=== PATIENT | female | born 1945 | race Caucasian/White ===

== ENCOUNTER 2024-02-06 12:51 | Outpatient (AMB) | payer MEDICARE, BC, SELFPAY ==
[2024-02-06 13:17] VITALS: BP 128/74; PULSE 68; O2SAT 97; BMI 28.4
--- NOTE | 2024-02-06 13:17 | A.OFFVIS_ITS ---
Vital Signs 02/06/24 13:17 Height 5 ft 3 in Weight 160 lb 7.944 oz BMI 28.4 BP 128/74 Blood Pressure Location Lt brachial Position Sitting Pulse 68 Pulse Source Pulse Oximeter Pulse Oximetry (%) 97 Oxygen Delivery Method Room Air Intake Visit Reasons: OA/MR RECIEVED Intake Note: Patient presents toay for follow up on OA. Patient states she finished her Prednisone, and once she did, pain started again. Allergies clindamycin Allergy (Mild, Verified 02/06/24 13:31) Swelling erythromycin base Allergy (Mild, Verified 02/06/24 13:31) tachycardia Penicillins Allergy (Mild, Verified 02/06/24 13:31) Hives tramadol [From Ultram] Allergy (Mild, Verified 02/06/24 13:31) makes her nuts nitrofurantoin Allergy (Unknown, Unverified 02/06/24 13:31) Unknown diclofenac Adverse Reaction (Unknown, Verified 02/06/24 13:31) Unknown lovonox Allergy (Mild, Uncoded 02/06/24 13:31) Swelling celecoxib Adverse Reaction (Intermediate, Uncoded 02/06/24 13:31) extreme tiredness HPI HPI OA/MR RECIEVED: Details: She started experiencing left trochanteric bursa pain yesterday. She is having difficulty with walking. Review of Systems Const All systems reviewed & are unremarkable except as noted in HPI and below Physical Exam Vital Signs: Last Vital Signs Pulse 68 02/06/24 13:17 BP 128/74 02/06/24 13:17 Pulse Ox 97 02/06/24 13:17 Oxygen Delivery Method Room Air 02/06/24 13:17 BMI result Body Mass Index 28.4 Const Other: General: Comfortable Skin: No lesions seen MSK: Tender to palpate left trochanteric bursa. She has limited full external rotation of left hip. Office Procedures AMB Joint Injection/Aspiration Joint Injection/Aspiration Details: Left trochanteric bursa Coding 10330 - Large joint Procedure code (CPT) selection complete Office Meds Kenalog 40 mg/mL suspension for injection Performing Provider: Ace Rosado MD Performing Location: [facility] Administered by: Ace Rosado MD on 02/06/24 14:07 Dose Route Admin Location Dispensed Lot Number Expiration Date NDC Retail Sales Specialist 40 mg intrabursal Left trochanteric bursa 1 mL AP [id number] [employer] lidocaine (PF) 10 mg/mL (1 %) injection solution Performing Provider: Ace Rosado MD Performing Location: [facility] Administered by: Ace Rosado MD on 02/06/24 14:07 Dose Route Admin Location Dispensed Lot Number Expiration Date ND Retail Sales Specialist 10 mg Infiltration Left trochanteric bursa 2 mL [id number] [facility] Assessment & Plan Assessment & Plan (1) Trochanteric bursitis, left hip: Comment: Recurrent left trochanteric bursa pain due to bursitis. Code(s): M70.62 - Trochanteric bursitis, left hip Category: Medical Plan: Left trochanteric bursa cortisone injection was given during visit. Continue meloxicam 15 mg daily Labs for drug monitoring and chronic NSAID ordered. She will need prescription for 90 day supply when she runs out. (2) Lumbar spondylosis: Comment: Pain is managed on meloxicam 15 mg daily, cyclobenzaprine 5 mg q.h.s. p.r.n. and cortisone injections administered by pain specialist (L-spine and SI joint) Code(s): M47.816 - Spondylosis without myelopathy or radiculopathy, lumbar region Category: Medical Plan: Continue meloxicam 15 mg daily Continue cyclobenzaprine 5 mg q.h.s. p.r.n. Labs for drug monitoring on chronic NSAID ordered. When patient needs refills, I will send refill for 90 day supply of meloxicam 15 mg q.day (3) Other long-term (current) drug therapy: Comment: Chronic NSAID use. Code(s): Z79.899 - Other terminal makeup operator (current) drug therapy Category: Medical Plan: See above. Orders: Orders Aspartate Amino Transferase 02/07/24 M47.816 - Spondylosis without myelopathy or radiculopathy, lumbar region, Z79.899 - Other terminal makeup operator (current) drug therapy AMB Joint Injection/Aspiration 02/06/24 M70.62 - Trochanteric bursitis, left hip Creatinine 02/07/24 M47.816 - Spondylosis without myelopathy or radiculopathy, lumbar region, Z79.899 - Other terminal makeup operator (current) drug therapy Alanine Aminotransferase 02/07/24 M47.816 - Spondylosis without myelopathy or radiculopathy, lumbar region, Z79.899 - Other long-term (current) drug therapy Coding Level of Care Code Est Pt Level 3 (07501) Complex EM visit Add On G2211 Diagnoses Trochanteric bursitis, left hip M70.62 Lumbar spondylosis M47.816 Other long-term (current) drug therapy Z79.899 CPT Codes Coding - 65281 Large joint: 52263 - Large joint ([id number])
== END 2024-02-06 14:13 | disposition home or self-care (01) ==
PROVIDERS: PCP Internal Medicine; Visit Provider Internal Medicine Rheumatology
DX: M70.62 Trochanteric bursitis, left hip (principal); M47.816 Spondylosis without myelopathy or radiculopathy, lumbar region; Z79.899 Other long term (current) drug therapy
CPT/HCPCS: 20610; 99213

== ENCOUNTER → 2024-02-06 12:51 | Outpatient (BNVA) | payer MEDICARE, BC, SELFPAY | PROVIDERS: PCP Internal Medicine; Visit Provider Internal Medicine Rheumatology | DX: M70.62 Trochanteric bursitis, left hip (principal); M47.816 Spondylosis without myelopathy or radiculopathy, lumbar region; Z79.899 Other long term (current) drug therapy | CPT/HCPCS: 20610; 99212; J2003; J3300 ==

== ENCOUNTER 2024-02-07 11:47 | Outpatient (REF) | payer MEDICARE, SELFPAY ==
[2024-02-07 13:31] LABS: Alanine Aminotransferase 38 U/L (0-31); Aspartate Amino Transferase 30 U/L (5-31); Estimated Glomerular Filt Rate > 60
== END 2024-02-07 11:48 | disposition home or self-care (01) ==
LOC: HO.HMGCLDS 11:47
PROVIDERS: PCP Internal Medicine; Visit Provider Internal Medicine Rheumatology
DX: M47.816 Spondylosis without myelopathy or radiculopathy, lumbar region (principal); Z79.899 Other long term (current) drug therapy
CPT/HCPCS: 36415; 82565; 84450; 84460

== ENCOUNTER 2024-02-24 10:51 | Outpatient (REF) | payer MEDICARE, SELFPAY ==
[2024-02-24 13:43] LABS: Alanine Aminotransferase 33 U/L (0-31); Aspartate Amino Transferase 33 U/L (5-31)
--- OUTSIDE RECORDS SUMMARY | 2024-02-26 14:50 | XMS_ITS | Continuity of Care Document ---
Author Organization [place] - [facility], [facility] Address [address] [place] [address] Care Team Providers Care Water And Fire Technician Name Role Phone TRESA PALMA Primary Care Provider Assessment Encounter Date Assessment Date Assessment LastModified by Organization Details LastModified Time 01/20/2024 01/20/2024 78 year old female with right maxillary sinus pressure for about one month. Nasal endoscopy did not reveal any polyps or active sinus infection. Reassurance was provided. I anticipate that her symptoms were related to a viral upper respiratory infection. I have issued her a referral to vestibular therapy for the positional vertigo. She will follow up on an as needed basis if her symptoms persist or if throat symptoms recur. In the future we could consider CT sinuses if her facial pain persists. Patient was seen and examined with MAXWELL Mullins Not available 01/20/2024 14:14:42 Plan of Treatment Reminders Order Date Submit Date Provider Last Modified By Organization Details Last Modified Time Details Appointments None recorded. Lab None recorded. Referral vestibula r therapy referral - Referral for vestibula r therapy. Patient requests Nini Gomez. Thank you. 2023 024 [facility], [address] [place] [address], [address], 08:57:23 Procedures None recorded. Surgeries None recorded. Imaging None recorded. Medication Orders None recorded. Patient TargetsNo targets recorded. Patient InstructionsNo instructions recorded. Reason for Referral Vestibular Therapy Referral for Dizziness and giddiness Referral for vestibular therapy. Patient requests Nini Gomez. Thank you. 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; Note: Date Diagnosed: 07/07/2015 2:16 PM (H90.42) Not Available [facility] 4 02:18:16 Bilateral earache 697938206 Active 2015 Otalgia, bilateral; Note: Date Diagnosed: 04/29/2015 2:38 PM (H92.03) Not Available [facility] 4 02:19:13 Dizziness and giddiness 042781367 Active 2020 Dizziness and giddiness; Note: Date Diagnosed: 01/12/2021 2:02 PM (R42) Not Available [facility] 4 02:19:03 Acute pansinusi tis 7782971 Active 2020 Acute recurrent pansinusit is; Note: Date Diagnosed: 01/12/2021 2:40 PM (J01.41) Not Available [facility] 4 02:18:20 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 Procedures Surgical History Date Name Laterality Status Provider Name and Address Organization Details Recorded Time 01/20/2024 NasalEndos copy_DP completed ELADIA STALLWORTH PA-C [address] [place] [address],[place] [address], [place], [address], [facility] 01/20/2024 12:59:35 Imaging Results None recorded. Procedure Notes None recorded. Medical Equipment None Reported. Allergies Allergen ID Allergen Name Allergen Category Reaction Reaction Severity Criticality Documentation Date Start Date Code Code System Note Provider Name and Address Organization Details Recorded Time 97882 clindamyc in hydrochlo ride medicatio n other Not available Not available 07/30/2023 99318 RxNorm React ion: unkno wn, unspe cifie d;; Not Available [facility] 4 00:50:06 35320 Medicinal product containin g penicilli n and acting as antibacte rial agent (product) medicatio n other Not available Not available 07/30/2023 28208 05 SNOMED React ion: unkno wn, unspe cifie d;; Not Available [facility] 4 00:50:42 28969 erythromy brittany medicatio n other Not available Not available 07/30/2023 4053 RxNorm React ion: unkno wn, unspe cifie d;; Not Available [facility] 4 00:50:52 Medications Name Sig Start Date Stop Date Status Note LastModified by Organization Details LastModified Time celecoxib 200 mg capsule TAKE 1 CAPSULE BY MOUTH TWICE DAILY WITH FOOD active Not Available Not Available No t Available cyclobenz aprine 10 mg tablet 01/12 completed Medicati on ID: [id number] B rand Name: kt santana Send Method: E-Prescr ibed Sub s Allowed: subs OK Medic ationGen ericName : kt santana Not Available Not Available Not Available atorvasta tin 40 mg tablet TAKE 1 TABLET BY MOUTH EVERY DAY active Not Available Not Available No t Available doxycycli ne hyclate 100 mg capsule TAKE 2 CAPSULES BY MOUTH 1 HOUR PRIOR TO DENTAL PROCEDUR E active Not Available Not Available No t Available fosfomyci n trometham ine 3 gram oral packet 1 EACH BY MOUTH ONCE active Not Available Not Available No t Available benzonata te 200 mg capsule TAKE 1 CAPSULE BY MOUTH THREE TIMES DAILY FOR 7 DAYS FOR COUGH active Not Available Not Available No t Available Ativan 1 mg tablet Take 1 tablet by mouth single dose as needed 01/12 completed Medicati on ID: [id number] D uration Value: 2 Brand Name: Ativan S end Method: E-Prescr ibed Sub s Allowed: subs OK Speci al Instruct ion: take prior to imaging. .may repeat in 30 min if no improvem ent Medi cationGe nericNam e: Ativan Not Available Not Available Not Available meloxicam 15 mg tablet TAKE 1 TABLET BY MOUTH DAILY active Not Available Not Available No t Available alendrona te 70 mg tablet active Medicati on ID: [id number] B rand Name: alendron ate Send Method: E-Prescr ibed Sub s Allowed: subs OK Medic ationGen ericName : alendron ate Not Available Not Available Not Available valsartan 80 mg tablet TAKE 1 TABLET BY MOUTH EVERY DAY active Not Available Not Available No t Available meloxicam 7.5 mg tablet 01/12 completed Medicati on ID: [id number] B rand Name: meloxica m Send Method: E-Prescr ibed Sub s Allowed: subs OK Medic ationGen ericName : meloxica m Not Available Not Available Not Available simvastat in 20 mg tablet 01/12 completed Medicati on ID: [id number] B rand Name: simvasta tin Send Method: E-Prescr ibed Sub s Allowed: subs OK Medic ationGen ericName : simvasta tin Not Available Not Available Not Available mirtazapi ne 30 mg tablet TAKE 1 TABLET BY MOUTH AT BEDTIME active Not Available Not Available No t Available buspirone 10 mg tablet TAKE 1 TABLET BY MOUTH TWICE DAILY active Not Available Not Available No t Available lisinopri l 10 mg tablet 01/12 completed Medicati on ID: [id number] D uration Value: 90 Brand Name: lisinopr il Send Method: E-Prescr ibed Sub s Allowed: subs OK Medic ationGen ericName : lisinopr il Not Available Not Available Not Available prednison e 50 mg tablet TAKE 1 TABLET BY MOUTH DAILY FOR 5 DAYS active Not Available Not Available No t Available gabapenti n 300 mg capsule TAKE 1 CAPSULE BY MOUTH TWICE DAILY active Not Available Not Available No t Available hydrochlo rothiazid e 25 mg tablet TAKE 1 TABLET BY MOUTH EVERY DAY active Not Available Not Available No t Available mupirocin 2 % topical ointment active Not Available Not Available Not Available diclofena c sodium 50 mg tablet,de layed release TAKE 1 TABLET BY MOUTH TWICE DAILY WITH FOOD active Not Available Not Available No t Available zolpidem 5 mg tablet 01/12 completed Medicati on ID: [id number] B rand Name: zolpidem Send Method: E-Prescr ibed Sub s Allowed: subs OK Medic ationGen ericName : zolpidem Not Available Not Available Not Available mirtazapi ne 15 mg tablet TAKE 1 TABLET BY MOUTH AT BEDTIME active Not Available Not Available No t Available fluticaso ne propionat e 50 mcg/actua tion nasal spray,michael pension SHAKE LIQUID AND USE 1 SPRAY IN EACH NOSTRIL DAILY active Not Available Not Available No t Available sodium fluoride 1.1 % dental gel APPLY A THIN FILM TO ALL TEETH BEFORE BEDTIME. NO EATING OR RINSING FOR 30 MINUTES. active Not Available Not Available No t Available doxycycli ne hyclate 100 mg tablet TAKE 1 TABLET BY MOUTH TWICE DAILY FOR 14 DAYS active Not Available Not Available No t Available Ventolin HFA 90 mcg/actua tion aerosol inhaler INHALE 2 PUFFS BY MOUTH FOUR TIMES DAILY NEEDED FOR COUGH OR WHEEZING active Not Available Not Available No t Available cyclobenz aprine 5 mg tablet TAKE 1 TABLET BY MOUTH AT BEDTIME NEEDED active Not Available Not Available No t Available nitrofura ntoin monohydra te/macroc rystals 100 mg capsule TAKE 1 CAPSULE BY MOUTH TWICE DAILY FOR 5 DAYS active Not Available Not Available No t Available fluticaso ne furoate 27.5 mcg/actua tion nasal spray,michael pension active Medicati on ID: [id number] B rand Name: fluticas one furoate Send Method: E-Prescr ibed Sub s Allowed: subs OK Medic ationGen ericName : fluticas one furoate Not Available Not Available Not Available Vitals Date Recorded Body height Body mass index (BMI) Body weight Provider Name and Address Organization Details Last Updated DateTime 01/20/2024 161.29 cm 26.2 kg/m2 73358.86 g Darlene Linares [place] - [facility] 01/20/2024 10:38:07 Social History None recorded. Functional Status None recorded. Mental Status None recorded. Family History Nothing Reported. Medical History No medical history recorded. Gynecological HistoryNo gynecological history recorded. Obstetrics History GPAL:G 0 P 0 0 0 0 Past Encounters Encounter ID Performer Location Encounter Start Date Encounter Closed Date Diagnosis/Indication Diagnosis SNOMED-CT Code Diagnosis ICD10 Code [id number] ANASTACIA BRODY MD [facility] on [address] [place] [address] 01/20/2024 10:28:03 01/20/2024 10:59:14 Dizziness and giddiness 606391710 R42 Atypical facial pain 713 94788 G50.1 Viral uppe r respiratory tract infection 075997793 J06.9 Health Concerns Section Related Observation LastModified by Organization Detai ls LastModified Time None Recorded Concern Status LastModified by Organization Details LastModified Time None Recorded Payers Encounter Date Sequence Insurance Name Policy Number Policy Carmona Covered Member ID Carmona Member ID Guarantor Name 01/20/2024 1 [place] [employer] Raquel Dennis [id number] 3 Raquel Dennis 01/20/2024 2 [place] [id number] Raquel Dennis [id number] Raquel Dennis Notes Date Note Type Note Provider Name and Address Organization Details Recorded Time 01/20/2024 text/html 78 year old michael rai presents to the office reporting sinus pressure as she points to the right maxillary sinus. A couple of weeks ago when she made the appointment she was having severe right side of the throat pain like she was swallowing razor blades. She reports today that the throat has pretty much cleared up. She felt like she had a sinus infection when her symptoms started. Her right ear had felt blocked. She reports a history of sinus infections. Overall her symptoms are improving. Additionally she reports that she has been seen for positional vertigo in the past and she deals with it from time to time. She requests a prescription for vestibular physical therapy. ANASTACIA BRODY MD [address] [place] [address], [phone], [facility] - [facility] 01/21/2024 07:38:30 OBGyn Episode No OBEpisode recorded.
== END 2024-02-24 10:52 | disposition home or self-care (01) ==
LOC: HO.HMGCLDS 10:51
PROVIDERS: PCP Internal Medicine; Visit Provider Internal Medicine Rheumatology
DX: Z79.899 Other long term (current) drug therapy (principal)
CPT/HCPCS: 36415; 84450; 84460

== ENCOUNTER 2024-04-10 13:09 | Outpatient (REF) | payer MEDICARE, SELFPAY ==
--- NOTE | ~2024-04-10 | XR_ITS ---
EXAMINATION: XR HIP, LEFT CLINICAL INFORMATION: M25.552 - Pain in left hip COMPARISON: None available. TECHNIQUE: Two views of the left hip. FINDINGS: There is mild loss of hip joint space without any bony erosive changes or loose bodies. No visible fracture, dislocation or lytic process seen. The soft tissues are normal. Visualized adjacent left hemipelvis is normal. XR/XR hip LT min 2V IMPRESSION: Minimal loss of left hip joint space otherwise unremarkable left hip exam. Electronically signed by: Vicente Jeong MD 04/13/2024 07:30 AM ELLIE
--- OUTSIDE RECORDS SUMMARY | 2024-04-10 14:57 | XMS_ITS | Data Portability ---
Author Organization [place] - [facility], Allergy Address [address] [place] [address] Care Team Providers Care Punchboard Assembler Name Role Phone TRESA PALMA Primary Care [...] requests Nini Gomez. Thank you. 2023 024 [facility], [address] [place] [address], [address], 08:57:23 Procedures None recorded. Surgeries None recorded. [...] Details Recorded Time Sensorine ural hearing loss 70929609 Active 2015 Sensorineu ral hearing loss, unilateral , left ear, with unrestrict ed hearing on the contralate ral side; Note: Date Diagnosed: 07/07/2015 2:16 PM (H90.42) Not Available [facility] 4 02:18:16 Bilateral earache 991792949 Active 2015 Otalgia, bilateral; Note: Date Diagnosed: 04/29/2015 2:38 PM (H92.03) Not Available [facility] 4 02:19:13 Dizziness and giddiness 176801210 Active 2020 Dizziness and giddiness; Note: Date Diagnosed: 01/12/2021 2:02 PM (R42) Not Available [facility] 4 02:19:03 Acute pansinusi tis 2414238 Active 2020 Acute recurrent pansinusit is; Note: Date Diagnosed: 01/12/2021 2:40 PM (J01.41) Not Available [facility] 4 02:18:20 Atypical facial pain 81882859 Active 2023 ELADIA STALLWORTH PA-C [address] [place] [address], [phone] , [facility] 4 14:13:59 Viral upper respirato ry tract infection 467568522 Active 2023 ELADIA STALLWORTH PA-C [address] [place] [address], [address] , [facility] 4 14:14:03 Problem Notes None recorded. Procedures Surgical History Date Name Laterality Status Provider Name and Address Organization Details Recorded Time 01/20/2024 NasalEndos copy_DP completed ELADIA STALLWORTH PA-C [address] [place] [address], [phone], [facility] 01/20/2024 12:59:35 Imaging Results None recorded. Procedure Notes None recorded. Medical Equipment None Reported. Allergies Allergen ID Allergen Name Allergen Category Reaction Reaction Severity Criticality Documentation Date Start Date Code Code System Note Provider Name and Address Organization Details Recorded Time 86547 clindamyc in hydrochlo ride medicatio n other Not available Not available 07/30/2023 28099 RxNorm React ion: unkno wn, unspe cifie d;; Not Available [facility] 4 00:50:06 99191 Product containin g penicilli n and antibioti c (product) medicatio n other Not available Not available 07/30/2023 55378 05 SNOMED React ion: unkno wn, unspe cifie d;; Not Available [facility] 4 00:50:42 11459 erythromy brittany medicatio n other Not available Not available 07/30/2023 4053 RxNorm React ion: unkno wn, unspe cifie d;; Not Available [facility] 4 00:50:52 Medications Name Sig Start Date Stop Date Status Note LastModified by Organization Details LastModified Time celecoxib 200 mg capsule TAKE 1 CAPSULE BY MOUTH TWICE DAILY WITH FOOD active Not Available Not Available No t Available cyclobenz aprine 10 mg tablet 01/12 completed Medicati on ID: [id number] B rand Name: lucinacitlaly santana Send Method: E-Prescr ibed Sub s Allowed: subs OK Medic ationGen ericName : cycloben zaprine Not Available Not Available Not Available atorvasta [...] as needed 01/12 completed Medicati on ID: [id number] D uration Value: 2 Brand Name: Ativan [...] 70 mg tablet active Medicati on ID: [id number] B rand Name: alendron ate Send Method: E-Prescr ibed Sub s Allowed: subs OK Medic ationGen ericName : alendron ate Not Available Not Available Not Available valsartan 80 mg tablet TAKE 1 TABLET BY MOUTH EVERY DAY active Not Available Not Available No t Available meloxicam 7.5 mg tablet 01/12 completed Medicati on ID: [id number] B rand Name: meloxica m Send Method: E-Prescr ibed Sub s Allowed: subs OK Medic ationGen ericName : meloxica m Not Available Not Available Not Available simvastat in 20 mg tablet 01/12 completed Medicati on ID: [id number] B rand Name: simvasta tin Send Method: [...] mg tablet 01/12 completed Medicati on ID: [id number] D uration Value: 90 Brand Name: lisinopr [...] No t Available zolpidem 5 mg tablet 10/28 /2021 completed Medicati on ID: [id number] B rand Name: zolpidem Send Method: E-Prescr [...] nasal spray,michael pension active Medicati on ID: [id number] B purlear Name: fluticas one furoate Send Method: E-Prescr ibed Sub s Allowed: subs OK Medic ationGen ericName : fluticas one furoate Not Available Not Available Not Available Vitals Date Recorded Body height Body mass index (BMI) Body weight Provider Name and Address Organization Details Last Updated DateTime 01/20/2024 161.29 cm 26.2 kg/m2 34804.86 g Darlene Linares [place] - [facility] 01/20/2024 10:38:07 Social History None recorded. Functional Status None recorded. Mental Status None recorded. Family History Nothing Reported. Medical History No medical history recorded. Gynecological HistoryNo gynecological history recorded. Obstetrics History GPAL:G 0 P 0 0 0 0 Past Encounters Encounter ID Performer Location Encounter Start Date Encounter Closed Date Diagnosis/Indication Diagnosis SNOMED-CT Code Diagnosis ICD10 Code Diagnosis Note [id number] ANASTACIA BRODY MD [facility] on [address] [place] [address] 01/20/2024 10:28:03 01/20/2024 10:59:14 Dizziness and giddiness 419108438 R42 Atypical facial pain 713 64957 G50.1 Viral uppe r respiratory tract infection 191992756 J06.9 Health Concerns Section Related Observation LastModified by Organization Detai ls LastModified Time None Recorded Concern Status LastModified by Organization Details LastModified Time None Recorded Advance Directives Directive None Recorded Payers Encounter Date Sequence Insurance Name Policy Number Policy Carmona Covered Member ID Carmona Member ID Guarantor Name 01/20/2024 1 [place] [employer] Raquel Dennis [id number] 3 Raquel Dennis 01/20/2024 2 [place] [id number] Raquel Dennis [id number] Raquel Dennis Notes Date Note Type [...] for vestibular physical therapy. ANASTACIA BRODY MD [address] [place] [address], [phone], [place] - [facility] 01/21/2024 07:38:30 OBGyn Episode No OBEpisode recorded.
== END 2024-04-10 13:10 | disposition home or self-care (01) ==
LOC: HO.HMGCX 13:09
PROVIDERS: PCP Internal Medicine; Visit Provider Internal Medicine Rheumatology
DX: M25.552 Pain in left hip (principal)
CPT/HCPCS: 73502

== ENCOUNTER → 2024-04-10 13:33 | Outpatient (BNV) | payer MEDICARE, SELFPAY | PROVIDERS: PCP Internal Medicine; Visit Provider Radiology Diagnostic Radiology | DX: M25.552 Pain in left hip (principal) | CPT/HCPCS: 73502 ==

== ENCOUNTER 2024-05-12 10:31 | Outpatient (REF) | payer MEDICARE, SELFPAY ==
[2024-05-12 18:29] LABS: Alanine Aminotransferase 29 U/L (0-31); Albumin Level 4.1 g/dL (3.5-5.0); Alkaline Phosphatase 93 U/L (39-117); Aspartate Amino Transferase 33 U/L (5-31); Bilirubin Direct 0.3 mg/dL (0.0-0.5); Estimated Glomerular Filt Rate > 60; Total Protein 7.7 g/dL (6.5-8.0)
== END 2024-05-12 10:32 | disposition home or self-care (01) ==
LOC: HO.HKASLDS 10:31
PROVIDERS: PCP Internal Medicine; Visit Provider Internal Medicine Rheumatology
DX: M16.12 Unilateral primary osteoarthritis, left hip (principal); M70.62 Trochanteric bursitis, left hip; R74.01 Elevation of levels of liver transaminase levels; M47.816 Spondylosis without myelopathy or radiculopathy, lumbar region; Z79.899 Other long term (current) drug therapy
CPT/HCPCS: 36415; 80076; 82565; 99212

== ENCOUNTER 2024-05-12 10:31 | Outpatient (AMB) | payer MEDICARE, SELFPAY ==
--- NOTE | 2024-05-12 10:41 | A.OFFVIS_ITS ---
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 Required: No Allergies clindamycin Allergy (Mild, Verified 05/12/24 10:41) Swelling erythromycin base Allergy (Mild, Verified 05/12/24 10:41) tachycardia Penicillins Allergy (Mild, Verified 05/12/24 10:41) Hives tramadol [From Ultram] Allergy (Mild, Verified 05/12/24 10:41) makes her nuts nitrofurantoin Allergy (Unknown, Verified 05/12/24 10:41) Unknown diclofenac Adverse Reaction (Unknown, Verified 05/12/24 10:41) Unknown lovonox Allergy (Mild, Uncoded 02/06/24 13:31) Swelling celecoxib Adverse Reaction (Intermediate, Uncoded 02/06/24 13:31) extreme tiredness HPI HPI 3 mo follow up: Details: She had a fall down 1 step landing on her left side. She had left hip pain. Pain has improved with time. Continues to have weakness adducting left hip. She continues to take meloxiam 15mg qd. NEOS performed intra-articular hip joint cortisone injection with pain. She has been referred to PT. Review of Systems Const All systems reviewed & are unremarkable except as noted in HPI and below Physical Exam Vital Signs: Last Vital Signs Pulse 78 05/12/24 10:42 Pulse Ox 98 05/12/24 10:42 Oxygen Delivery Method Room Air 05/12/24 10:42 BMI result Body Mass Index 27.4 Const Other: General: Comfortable Skin: No lesions seen MSK: Tender to palpate left groin region and trochanteric bursa. She has limited full external rotation of left hip. SHe has pain with left hip flexion and adduction. Assessment & Plan Assessment & Plan (1) Trochanteric bursitis, left hip: Comment: Pain improved with last cortisone injection. She has mild transaminitis on recent labs 02/2024 without prior history of liver dysfunction or liver disease. NSAIDs can rarely cause transaminitis. She also has been experiencing bruising on her extremities. We discussed the side effect of easily bruising on chronic NSAID use. She has had benefit in controlling hip and back pain with meloxicam. Code(s): M70.62 - Trochanteric bursitis, left hip Category: Medical Plan: She will try to reduce dose of meloxicam to 7.5 mg daily when she can tolerate pain Labs for drug monitoring on chronic NSAID ordered. If she continues to have transaminitis on labs, I will order right upper quadrant ultrasound for further evaluation. Return to clinic in 3 months (2) Osteoarthritis of left hip: Comment: Exacerbated left hip pain after fall. Mild osteoarthritis on recent x-ray 04/10/2024. Personally reviewed x-ray with patient. Improved with intra- articular cortisone injection given by pain management. She likely has hip flexor and abductor ligament/muscle strain contributing to current pain and weakness. Pain management in his ordered PT, which I encouraged her to pursue for lower extremity strengthening. Code(s): M16.12 - Unilateral primary osteoarthritis, left hip Category: Medical Qualifiers: Osteoarthritis type: primary Qualified Code(s): M16.12 - Unilateral primary osteoarthritis, left hip Plan: Patient will schedule physical therapy for lower extremity strengthening. 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 Code(s): Z79.899 - Other terminal operations supervisor (current) drug therapy Category: Medical Plan: See above. (6) Lumbar spondylosis: Comment: Pain is managed on meloxicam 15 mg daily, cyclobenzaprine 5 mg q.h.s. p.r.n. and cortisone injections administered by pain specialist (L-spine and SI joint) Code(s): M47.816 - Spondylosis without myelopathy or radiculopathy, lumbar region Category: Medical Plan: Continue meloxicam 15 mg daily. She will reduce dose to 7.5 mg daily on days that her pain is tolerable Continue cyclobenzaprine 5 mg q.h.s. p.r.n. Labs for drug monitoring on chronic NSAID ordered. Orders: Orders Liver Panel Today R74.01 - Elevation of levels of liver transaminase levels, Z79.899 - Other terminal operations supervisor (current) drug therapy Creatinine Today R74.01 - Elevation of levels of liver transaminase levels, Z79.899 - Other assisted (current) drug therapy Medications: Refilled meloxicam 15 mg PO DAILY 30 tabs 2RF Coding Level of Care Code Est Pt Level 3 (75148) Complex EM visit Add On G2211 Diagnoses Trochanteric bursitis, left hip M70.62 Primary osteoarthritis of left hip M16.12 Osteoarthritis type: primary Transaminitis R74.01 Bruising T14.8XXA Other terminal operations supervisor (current) drug therapy Z79.899 Lumbar spondylosis M47.816
[2024-05-12 10:42] VITALS: PULSE 78; O2SAT 98; BMI 27.4
--- OUTSIDE RECORDS SUMMARY | 2024-05-12 12:30 | XMS_ITS | Data Portability ---
Author Organization [place] - [facility], Allergy Address [address] [place] [id number] Care Team Providers Care Computer Programmer Name Role Phone TRESA PALMA Primary Care [...] requests Nini Gomez. Thank you. 2023 024 [facility], [address] [place] [address], [id number], 08:57:23 Procedures None recorded. Surgeries None recorded. 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; Note: Date Diagnosed: 07/07/2015 2:16 PM (H90.42) Not Available [facility] 4 02:18:16 Bilateral earache 652753564 Active 2015 Otalgia, bilateral; Note: Date Diagnosed: 04/29/2015 2:38 PM (H92.03) Not Available [facility] 4 02:19:13 Dizziness and giddiness 174374651 Active 2020 Dizziness and giddiness; Note: Date Diagnosed: 01/12/2021 2:02 PM (R42) Not Available [facility] 4 02:19:03 Acute pansinusi tis 5471962 Active 2020 Acute recurrent pansinusit is; Note: Date Diagnosed: 01/12/2021 2:40 PM (J01.41) Not Available [facility] 4 02:18:20 Atypical facial pain 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 Procedures Surgical History Date Name Laterality Status Provider Name and Address Organization Details Recorded Time 01/20/2024 NasalEndos copy_DP completed ELADIA STALLWORTH PA-C [address] [place] [address], [phone], [facility] 01/20/2024 12:59:35 Imaging Results None recorded. Procedure Notes None recorded. Medical Equipment None Reported. Allergies Allergen ID Allergen Name Allergen Category Reaction Reaction Severity Criticality Documentation Date Start Date Code Code System Note Provider Name and Address Organization Details Recorded Time 93591 clindamyc in hydrochlo ride medicatio n other Not available Not available 07/30/2023 40765 RxNorm React ion: unkno wn, unspe cifie d;; Not Available [facility] 4 00:50:06 29798 Product containin g penicilli n (product) medicatio n other Not available Not available 07/30/2023 34830 8001 SNOMED React ion: unkno wn, unspe cifie d;; Not Available [facility] 4 00:50:42 29800 erythromy brittany medicatio n other Not available Not available 07/30/2023 4053 RxNorm React ion: unkno wn, unspe cifie d;; Not Available [facility] 4 00:50:52 Medications Name Sig Start Date Stop Date Status Note LastModified by Organization Details LastModified Time celecoxib 200 mg capsule TAKE 1 CAPSULE BY MOUTH TWICE DAILY WITH FOOD active Not Available Not Available No t Available cyclobenz aprine 10 mg tablet 01/12 completed Medicati on ID: [id number] B rand Name: kt santana Send Method: E-Prescr ibed Sub s Allowed: subs OK Medic ationGen ericName : arsenbecitlaly zaprine Not Available Not Available Not Available [...] as needed 01/12 completed Medicati on ID: [id number] D uration Value: 2 Brand Name: Ativan [...] 70 mg tablet active Medicati on ID: [id number] B rand Name: alendron ate Send Method: E-Prescr ibed Sub s Allowed: subs OK Medic ationGen ericName : alendron ate Not Available Not Available Not Available valsartan 80 mg tablet TAKE 1 TABLET BY MOUTH EVERY DAY active Not Available Not Available No t Available meloxicam 7.5 mg tablet 01/12 completed Medicati on ID: [id number] B rand Name: meloxica m Send Method: E-Prescr ibed Sub s Allowed: subs OK Medic ationGen ericName : meloxica m Not Available Not Available Not Available simvastat in 20 mg tablet 01/12 completed Medicati on ID: [id number] B rand Name: simvasta tin Send Method: [...] mg tablet 01/12 completed Medicati on ID: [id number] D uration Value: 90 Brand Name: lisinopr [...] mg tablet 01/12 completed Medicati on ID: [id number] B rand Name: zolpidem Send Method: E-Prescr [...] nasal spray,michael pension active Medicati on ID: [id number] B rand Name: fluticas one furoate Send Method: E-Prescr ibed Sub s Allowed: subs OK Medic ationGen ericName : fluticas one furoate Not Available Not Available Not Available Vitals Date Recorded Body height Body mass index (BMI) Body weight Provider Name and Address Organization Details Last Updated DateTime 01/20/2024 161.29 cm 26.2 kg/m2 15018.86 g Darlene Linares [place] - [facility] 01/20/2024 10:38:07 Social History None recorded. Functional Status None recorded. Mental Status None recorded. Family History Nothing Reported. Medical History No medical history recorded. Gynecological HistoryNo gynecological history recorded. Obstetrics History GPAL:G 0 P 0 0 0 0 Past Encounters Encounter ID Performer Location Encounter Start Date Encounter Closed Date Diagnosis/Indication Diagnosis SNOMED-CT Code Diagnosis ICD10 Code Diagnosis Note [id number] ANASTACIA BRODY MD [facility] on [address] [place] [address] 01/20/2024 10:28:03 01/20/2024 10:59:14 Dizziness and giddiness 646192341 R42 Atypical facial pain 713 59986 G50.1 Viral uppe r respiratory tract infection 387443956 J06.9 Health Concerns Section Related Observation LastModified by Organization Detai ls LastModified Time None Recorded Concern Status LastModified by Organization Details LastModified Time None Recorded Advance Directives Directive None Recorded Payers Encounter Date Sequence Insurance Name Policy Number Policy Carmona Covered Member ID Carmona Member ID Guarantor Name 01/20/2024 1 [place] [employer] Raquel Dennis [id number] Raquel Dennis 01/20/2024 2 [place] [id number] Raquel Dennis [id number] Raquel Dennis Notes Date Note Type [...] for vestibular physical therapy. ANASTACIA BRODY MD [address] [place] [address], [phone], [place] - [facility] 01/21/2024 07:38:30 OBGyn Episode No OBEpisode recorded.
== END 2024-05-12 11:27 | disposition home or self-care (01) ==
PROVIDERS: PCP Internal Medicine; Visit Provider Internal Medicine Rheumatology
DX: M70.62 Trochanteric bursitis, left hip (principal); M16.12 Unilateral primary osteoarthritis, left hip; R74.01 Elevation of levels of liver transaminase levels; T14.8XXA Other injury of unspecified body region, initial encounter; Z79.899 Other long term (current) drug therapy; M47.816 Spondylosis without myelopathy or radiculopathy, lumbar region
CPT/HCPCS: 99213; G2211

== ENCOUNTER 2024-08-06 10:03 | Outpatient (AMB) | payer MEDICARE, SELFPAY ==
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
[2024-08-06 10:01] VITALS: BP 110/60; PULSE 78; O2SAT 97; BMI 27.4
--- OUTSIDE RECORDS SUMMARY | 2024-08-06 10:24 | XMS_ITS ---
Author Organization [facility] Address [address] [place] [address] Care Team Providers Care Wicker Worker Name Role Phone Viral Anderson MD Primary Care Provider Janki Vargas Unavailable [phone] Allergies Allergen (clinical drug ingredient) Drug/Non Drug Allergy documented on EMR Reaction Allergy Type Onset Date Status celecoxib Celecoxib Unknown Drug Allergy Active nitrofurantoin Nitrofurantoin Unknown Drug Allergy Active Diclofenac Unknown Drug Allergy Active clindamycin Clindamycin Unknown Drug Allergy Act lakisha erythromycin Erythromycin Unknown Drug Allergy A ctive Penicillin Unknown Drug Allergy Active REASON FOR VISIT Foot pain Medications Medication SIG (Take, Route, Fr equency, Duration) Notes Start Date End Date Status Gabapentin Active busPIRone HCl Active Atorvastatin Calcium Active hydroCHLOROthiazide Active valACYclovir HCl Act lakisha Acetaminophen Active Aspirin Active Meloxicam Active Fluticasone Propionate Active Valsartan Active Omeprazole Active Cyclobenzaprine HCl Active Social History Tobacco Use: Social History Observation Description Date Details (start date - stop date) Never Smoker NA - NA Tobacco use other than smoking: Question Answer Notes Are you an other tobacco user? No Tobacco Control (Standard) Question Answer Notes Tobacco use: Nonsmoker Additional Findings: Tobacco non-user Current no nsmoker AUDIT-C (Standard) Question Answer Notes Did you have a drink contain ing alcohol in the past year? Yes How often did you have a dri nk containing alcohol in the past year? Never (0 point) How many drinks did you have on a typical day when you were drinking in the past year? 1 or 2 drinks (0 point) How often did you have six o r more drinks on one occasion in the past year? Never (0 point) Points 0 Interpretation Negative Vital Signs Height 5ft 3in in 07/13/2024 Weight 150 lbs 07/13/2024 BMI 26.57 kg/m2 07/13/2024 Blood pressure systolic 130 mm Hg 07/14/19 25 Blood pressure diastolic 70 mm Hg 025 Encounters Encounter Location Date Provider [facility] [address] 07/13/2024 Janki Curry Flat foot [pes planus] (acquired), right foot M21.41 ; Flat foot [pes planus] (acquired), left foot M21.42 and Pain in left foot M79.672 Assessments Encounter Date Diagnosis (ICD Code) Assessment Notes Treatment Notes Treatment Clinical Notes Section Notes 07/13/2024 Flat foot [pes planus] (acquired), right foot (ICD-10 - M21.41) 07/13/2024 Flat foot [pes planus] (acquired), left foot (ICD-10 - M21.42) 07/13/2024 Pain in left foot (ICD-10 - M79.672) Plan Of Treatment Next Appt Details Follow Up: prn, Reason: Progress Notes * Raquel VÁSQUEZ ADOB:[birth year] (78 yo F)Acc No.[id number]:07/13/2024 Progress Notes Patient:?THALIA Raquel Castaneda Provider:?Janki Curry DPM :1945???Age:78 Y???Sex:Female D ate:07/13/2024 Address:[address] [place] [id number] Pcp:Viral Anderson MD Subjective: * Chief Complaints: * ???Foot pain * HPI: ???Foot Pain:?Nature:?tenderness, foot sliding in shoe.?Location:?LEFT.?Duration:?several months.?Treatments:?custom orthotics, padding.? * ROS:?General/Constitutional:?Nausea?denies.?Vomiting?denies.?Hunger Thirst?denies.?Loss appetite?denies.?Chills?denies.?Fatigue?denies.?Fever?denies.?Night Sweats?denies.?Unexplained weight loss?denies.?Unexplained weight gain?denies.?HEENTM:?Dentures?denies.?Dizziness?denies.?Glasses/contacts?denies.?Retinopathy?de nies.?Blurred/double vision?denies.?TMJ?denies.?Discharge/drainage?denies.?Implants?denies.?Sore throat?denies.?Dental implants?denies.?Hard of hearing ?denies.?Difficulty chewing/swallowing/speaking?denies.?Nose bleeds?denies.?Sore mouth?denies.?Respiratory:?On Oxygen?denies.?Pneumonia/pleurisy?denies.?Bronchitis?denies.?Emphysema?denies.?C oughing?denies.?Cough blood?denies.?Shortness of breath?denies.?Wheezing?denies.?Cardiovascular:?Pacemaker?denies.?MVP?denies.?WPW?denies.?CHF?denies.?Heart attack?denies.?Septal defect?denies.?Rapid beat?denies.?Chest pain ?denies.?Atrial Fib.?denies.?Murmur/Palpitations?denies.?Gastrointestinal:?Hemorrhoids?denies.?Stomach/Abdominal pain?denies.?Dark blood stool?denies.?Irritable bowel ?denies.?Constipation?denies.?Diarrhea?denies.?Hematology:?Swelling?denies.?Clots?denies.?Varicose Veins?denies.?Bruising?denies.?Bleeding problem?denies.?Genitourinary:?Blood urine?denies.?Frequent/Painfu/urination/bladder control?denies.?Kidney stones?denies.?Infection (UTI)?denies.?Nephropathy?denies.?sex trans dis (STD)?denies.?Prostate?denies.?Musculoskeletal:?Hammertoes?denies.?Bunions?denies.?Back Pain?denies.?Muscle Cramps/ Resting?denies.?Muscle cramps / walking?denies.?Generalized aches and pains?denies.?Weakness?denies.?Integ.:?Davalos?denies.?Scars?denies.?Corns/calluses?denies.?Ingrown nails?denies.?Painful nails?denies.?Open Sores?denies.?Rashes?denies.?Neurologic:?Difficulty sleeping?denies.?Brain disorder?denies.?Numbness?denies.?Balance trouble?denies.?Confusion?denies.?Fainting/blackouts?denies.?Tingling?denies.?Tr emors?denies.? * Medical History:? * Surgical History:?spinal lennox nosis surgery Gingivectomy 1985tonsillectomy 1949discectomy 1990L & R Tailers Bunion 1998R rotator cuff 2002R Carpal tunnel 2007L Carpal tunnel & CT release 2009left knee replacement 2013right knee replacement 2010cataract surgery, right 2012lasik 2004cataract surgery, left 2018L rotator cuff 2016R hand & CT release 2016 * Hospitalization/Major Diagno stic Procedure:?Denies Past Hospitalization * Family History:?Mother: dece ased, Foot problems, diagnosed with Other malignant neoplasm of unspecified site, Unspecified essential hypertension, Family history of arthritis.?Father: , diagnosed with Unspecified heart disease.? * Social History:?Tobacco Use:?Tobacco use other than smoking?Are you an other tobacco user??No ?Tobacco Control (Standard)?Tobacco use:?Nonsmoker ?Additional Findings: Tobacco non-user?Current nonsmoker ???Drugs/Alcohol:?Drugs?Have you used drugs other than those for medical reasons in the past 12 months??No ???Miscellaneous:?Caffeine: no, decaf. ?Children: yes, 2. ?Exercise: yes, gardening. ?Marital status: . ?Occupation: Retired. ???Drug/Alcohol:?AUDIT-C (Standard)?Did you have a drink containing alcohol in the past year??Yes ?How often did you have a drink containing alcohol in the past year??Never (0 point) ?How many drinks did you have on a typical day when you were drinking in the past year??1 or 2 drinks (0 point) ?How often did you have six or more drinks on one occasion in the past year??Never (0 point) ?Points?0 ?Interpretation?Negative * Medications:?TakingOmeprazol e Cyclobenzaprine HCl Acetaminophen Aspirin Fluticasone Propionate Valsartan Meloxicam valACYclovir HCl hydroCHLOROthiazide busPIRone HCl Atorvastatin Calcium Gabapentin Medication List reviewed and reconciled with the patientTaking Omeprazole Taking Cyclobenzaprine HCl Taking Acetaminophen Taking Aspirin Taking Fluticasone Propionate Taking Valsartan Taking Meloxicam Taking valACYclovir HCl Taking hydroCHLOROthiazide Taking busPIRone HCl Taking Atorvastatin Calcium Taking Gabapentin Medication List reviewed and reconciled with the patient * Allergies:?PenicillinErythromycinClindamycinCelecoxibDiclofenacNitrofurantoinyes [Allergies Verified] Objective: * Vitals:?Ht: 5ft 3in, Wt: 150 , BMI: 26.57, Shoe size: 8.5, BP: 130/70 mm Hg, Ht- cm: 160.02 cm, Wt-k.04 kg. * Examination: ???General Examination: ?GENERAL APPEARANCE:?Reveals a pleasant, alert, well-nourished, well- developed, well hydrated individual, who demonstrates proper attention to hygiene/body habitus, and is in no acute distress, Pt serves as own?historian for office visit today.?ORIENTED:?person, place, and time.?Neurological: ?SENSORY:?Neurological exam reveals intact sensorium, pain sensation normal, vibration sensation intact, pinprick sensation is normal in the lower extremities, Pt denies, anesthesia, burning, paresthesia, tingling, B/L.?DEEP TENDON REFLEXES:?Achilles, 2/4, B/L.?Vascular: ?DP PULSES (B):?3/4, B/L.?PT PULSES (B):?3/4, B/L.?CAPILLARY FILL TIME:?immediate, all digits, B/L.?TROPHIC CONDITION-TEXTURE/ELASTICITY/TURGOR/HAIR GROWTH (B):?normal, B/L.?TEMPERTURE GRADIENT (C):?warm to cool, proximal to distal, B/L.?PIGMENTATION:?normal, B/L.?EDEMA (C):?absent, B/L.?Dermatologic: ?SKIN FINDINGS:?Skin exam reveals normal texture, elasticity, and turgor. There are no masses. The interspaces are clear.?Orthopedic: ?MUSCLE STRENGTH:?5/5 all groups in a symmetrical fashion , B/L.?GAIT ABNORMALITY:?antalgic, abducted angle and base of gate.?FOOT MORPHOLOGY:?B/L, Pes Planus structure, Semi-flexible.?FOOTWEAR EVALUATION:?OT were inspected and noted to be worn and left orthotic ?not giving proper support at the present time.? Assessment: * Assessment: 1.?Flat foot [pes planus] (a cquired), left foot - M21.42 (Primary)???2.?Flat foot [pes planus] (acquired), right foot - M21.41???3.?Pain in left foot - M79.672??? Plan: * Treatment: * Procedure Codes:? * Preventive Medicine:? ??Counseling:?Discussion:?-03: Office or other outpatient visit for the evaluation and management of a new patient, which required a medically appropriate history and/or examination and LOW level of DECISION MAKING for: 1 STABLE ACUTE UNCOMPLICATED PROBLEM, 2 OR MORE MINOR PROBLEMS, OR 1 STABLE CHRONIC PROBLEM, THAT POSE(S) A LOW RISK FOR MORBIDITY/MORTALITY. The visit on the day of the encounter encompassed interpreting the data and educating the patient as to the nature of their condition, treatment options available according to their individual PMH, meds, allergies, and overall health/living conditions, as well as any potential risks or complications that may occur from a failure to adhere to, and participate in, the recommended course of therapy. The discussion included a complete verbal, and/or written explanation of the examination results, any x-rays taken, the proposed diagnosis, and outline of the treatment plan. A schedule for future care needs was also explained. The patient verbalized an understanding of the instructions at this time and agreed to be an active participant in their treatment. If the patient should think of any questions or concerns after the visit, I have encouraged the patient to call the office.?BioMech.:?I discussed the Pts foot biomechanics with them and how it relates to their problem.?Padding:?Added lateral wedge to left orthotic.? ??Screening/Special Tests:?Fall Risk?Screening:?No falls in the past year ?FALLS: Screening for Future Fall Risk?Have you had two or more falls in the past year??No * Follow Up:?prn * Images: * Sign off status: Completed true * Provider:?Janki Curry, DPM Date:? Generated for Myra seay/Margie/Sondraitting on:?08/06/2024 10:24 AM EDT History and Physical Notes * HPI (History of Present Illness) Category Sub-Category Detail Notes Category Not es Foot Pain Nature: tenderness, foot sliding in shoe Location: LEFT Duration: several months Treatments: custom orthotics, pa dding Examination Category Sub-Category Detail Notes Category Not es Neurological SENSORY: Neurological exa m reveals intact sensorium, pain sensation normal, vibration sensation intact, pinprick sensation is normal in the lower extremities, Pt denies, anesthesia, burning, paresthesia, tingling, B/L DEEP TENDON REFLEXES: Achilles, 2/4, B/L Dermatologic SKIN FINDINGS: Skin exam reveal s normal texture, elasticity, and turgor. There are no masses. The interspaces are clear Orthopedic GAIT ABNORMALITY: antalgic, abducted angl e and base of gate FOOT MORPHOLOGY: B/L, Pes Planus stru cture, Semi-flexible FOOTWEAR EVALUATION: OT were inspected a nd noted to be worn and left orthotic not giving proper support at the present time MUSCLE STRENGTH: 5/5 all groups in a symmetrical fashion , B/L General Examination GENERAL APPEARANCE: Reveals a pleasant, alert, well- nourished, well-developed, well hydrated individual, who demonstrates proper attention to hygiene/body habitus, and is in no acute distress, Pt serves as own historian for office visit today ORIENTED: person, place, and t jonah Vascular DP PULSES (B): 3/4, B/L PT PULSES (B): 3/4, B/L CAPILLARY FILL TIME: immediate, all digi ts, B/L TEMPERTURE GRADIENT (C): warm to cool, p roximal to distal, B/L TROPHIC CONDITION-TEXTURE/ELASTICITY/TURGOR/HAIR GROWTH (B): normal, B/L EDEMA (C): absent, B/L PIGMENTATION: normal, B/L
--- OUTSIDE RECORDS SUMMARY | 2024-08-06 10:24 | XMS_ITS | Data Portability ---
Author Organization [place] - [facility], Allergy Address [address] [place] [address] Care Team Providers Care Acoustic Sensor Operator Name Role Phone TRESA PALMA Primary Care [...] persists. Patient was seen and examined with Toyin More PA-C. Not available 01/20/2024 14:14:42 06/17/2024 06/17/2024 78 year old female with hoarseness that progresses over the course of the day. Fiberoptic laryngoscopy was unremarkable. I have recommended a six week trial of Omeprazole to address silent reflux. Discussed good voice hygiene including adequate hydration, avoidance of straining and clearing throat. I have also issued her a prescription for speech therapy with Vanessa Guillen. Follow up in 4 months. Not available 06/17/2024 15:08:37 Plan of Treatment Reminders Order Date Submit Date Provider Last Modified By Organization Details Last Modified Time Details Appointments Establi shed 15 2024 11:15A M MARIA ESTHER URIBE PA-C Not available Not available Not available Lab None recorde d. Referral speech therapy referra l 2024 025 [email or web address] Vanessa Guillen, [address] [facility], [place], [address], 06/17/2024 12:21:39 vestibu lar therapy referra l - Referra l for vestibu lar therapy . Patient request glen Gomez . Thank you. 2023 024 [facility], [address] [facility], [place], [address], 02/06/2024 08:57:23 Procedures None recorde d. Surgeries None recorde d. Imaging None recorde d. Medication Orders omepraz ole 20 mg capsule ,delaye d release 2024 025 [id number], [address] [place], [place], [id number], 06/17/2024 11:30:30 Patient TargetsNo targets recorded. Patient InstructionsNo instructions recorded. Reason for Referral Vestibular Therapy Referral for Dizziness and giddiness Referral for vestibular therapy. Patient requests Ninimaribel Gomez. Thank you. 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; Note: Date Diagnosed: 07/07/2015 2:16 PM (H90.42) Not Available [facility] 4 02:18:16 Bilateral earache 501068727 Active 2015 Otalgia, bilateral; Note: Date Diagnosed: 04/29/2015 2:38 PM (H92.03) Not Available [facility] 4 02:19:13 Dizziness and giddiness 543807702 Active 2020 Dizziness and giddiness; Note: Date Diagnosed: 01/12/2021 2:02 PM (R42) Not Available [facility] 4 02:19:03 Acute pansinusi tis 4994755 Active 2020 Acute recurrent pansinusit is; Note: Date Diagnosed: 01/12/2021 2:40 PM (J01.41) Not Available [facility] 4 02:18:20 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 2023 NATALIA STALLWORTH PA-C [facility] [place], [address] , [facility] - [facility] 14:13:59 Viral upper respirato ry tract infection 913819951 Active 2023 NATALIA STALLWORTH PA-C [address] [place] [address],[place] [address], [facility] [place], [address] , [facility] 4 14:14:03 Hoarse 60923702 Active 2024 ANTALIA STALLWORTH PA-C [address] [place] [address],[address] [place], [address] , [facility] 5 11:27:33 Problem Notes None recorded. Procedures Surgical History Date Name Laterality Status Provider Name and Address Organization Details Recorded Time 06/17/2024 FOL_DP completed NATALIA STALLWORTH PA-C [address] [place] [address], [phone], [facility] 06/17/2024 15:06:11 01/20/2024 NasalEndos copy_DP completed NATALIA STALLWORTH PA-C [address] [place] [address], [address], [facility] 01/20/2024 12:59:35 Imaging Results None recorded. Procedure Notes None recorded. Medical Equipment None Reported. Allergies Allergen ID Allergen Name Allergen Category Reaction Reaction Severity Criticality Documentation Date Start Date Code Code System Note Provider Name and Address Organization Details Recorded Time 34304 clindamyc in hydrochlo ride medicatio n other Not available Not available 07/30/2023 27274 RxNorm React ion: unkno wn, unspe cifie d;; Not Available [facility] 4 00:50:06 60054 Product containin g penicilli n (product) medicatio n other Not available Not available 07/30/2023 62312 8001 SNOMED React ion: unkno wn, unspe cifie d;; Not Available [facility] 4 00:50:42 00271 erythromy brittany medicatio n other Not available Not available 07/30/2023 4053 RxNorm React ion: unkno wn, unspe cifie d;; Not Available [facility] 4 00:50:52 Medications Name Sig Start Date Stop Date Status Note LastModified by Organization Details LastModified Time celecoxib 200 mg capsule TAKE 1 CAPSULE BY MOUTH TWICE DAILY WITH FOOD 06/17 completed Not Available Not Available Not Available cyclobenz aprine 10 mg tablet 01/12 completed Medicati on ID: [id number] B rand Name: kt santana Send Method: E-Prescr ibed Sub s Allowed: subs OK Medic ationGen ericName : kt diazrine Not Available Not Available Not Available atorvasta tin 40 mg tablet TAKE 1 TABLET BY MOUTH DAILY active Not Available Not Available No t Available prednison e 10 mg tablet SEE ATTACHED DIRECTIO NS FOR TAPER 06/17 completed Not Available Not Available Not Available doxycycli ne hyclate 100 mg capsule TAKE 2 CAPSULES BY MOUTH 1 HOUR PRIOR TO DENTAL PROCEDUR E 06/17 completed Not Available Not Available Not Available fosfomyci n trometham ine 3 gram oral packet 1 EACH BY MOUTH ONCE 06/17 completed Not Available Not Available Not Available benzonata te 200 mg capsule TAKE 1 CAPSULE BY MOUTH THREE TIMES DAILY FOR 7 DAYS FOR COUGH 06/17 completed Not Available Not Available Not Available Ativan 1 mg tablet Take 1 tablet by mouth single dose as needed 01/12 completed Medicati on ID: [id number] D uration Value: 2 Brand Name: Ativan [...] t Available alendrona te 70 mg tablet TAKE 1 TABLET BY MOUTH 1 TIME A WEEK active Not Available Not Available No t Available valsartan 80 mg tablet TAKE 1 TABLET BY MOUTH DAILY active Not Available Not Available No t Available meloxicam 7.5 mg tablet 01/12 completed Medicati on ID: [id number] B rand Name: meloxica m Send Method: E-Prescr ibed Sub s Allowed: subs OK Medic ationGen ericName : meloxica m Not Available Not Available Not Available benzonata te 100 mg capsule TAKE 1 CAPSULE BY MOUTH THREE TIMES DAILY FOR 7 DAYS NEEDED FOR COUGH 06/17 completed Not Available Not Available Not Available simvastat in 20 mg tablet 01/12 completed Medicati on ID: [id number] B rand Name: simvasta tin Send Method: [...] mg tablet 01/12 completed Medicati on ID: [id number] D uration Value: 90 Brand Name: lisinopr il Send Method: E-Prescr ibed Sub s Allowed: subs OK [facility] lisinopr il Not Available Not Available Not Available prednison e 50 mg tablet TAKE 1 TABLET BY MOUTH DAILY FOR 5 DAYS 06/17 completed Not Available Not Available Not Available gabapenti n 300 mg capsule TAKE 1 CAPSULE BY MOUTH TWICE DAILY active Not Available Not Available No t Available omeprazol e 20 mg capsule,d elayed release TAKE 1 CAPSULE BY MOUTH EVERY DAY active Not Available Not Available No t Available hydrochlo rothiazid e 25 mg tablet TAKE 1 TABLET BY MOUTH DAILY active Not Available Not Available No t Available mupirocin 2 % topical ointment 06/17 completed Not Available Not Available Not Available diclofena c sodium 50 mg tablet,de layed release TAKE 1 TABLET BY MOUTH TWICE DAILY WITH FOOD 06/17 completed Not Available Not Available Not Available zolpidem 5 mg tablet 01/12 completed Medicati on ID: [id number] B rand Name: zolpidem Send Method: E-Prescr ibed Sub s Allowed: subs OK Medic ationGen ericName : zolpidem Not Available Not Available Not Available mirtazapi ne 15 mg tablet TAKE 1 TABLET BY MOUTH AT BEDTIME 06/17 completed Not Available Not Available Not Available fluticaso ne propionat e 50 mcg/actua tion nasal spray,michael pension SHAKE LIQUID AND USE 1 SPRAY IN EACH NOSTRIL DAILY active Not Available Not Available No t Available sodium fluoride 1.1 % dental gel APPLY THIN FILM TO ALL TEETH BEFORE BEDTIME NO EATING OR RINSING FOR 30 MINUTES active Not Available Not Available No t Available cholecalc iferol (vitamin D3) 125 mcg (5,000 unit) capsule TAKE 1 CAPSULE BY MOUTH ONCE A DAY active Not Available Not Available No t Available doxycycli ne hyclate 100 mg tablet TAKE 1 TABLET BY MOUTH TWICE DAILY FOR 14 DAYS 06/17 completed Not Available Not Available Not Available bacitraci n-polymyx in B 500 unit-10,0 00 unit/gram eye ointment APPLY 1 THIN LAYER TO THE EYELIDS THREE TIMES DAILY FOR 5 DAYS 06/17 completed Not Available Not Available Not Available Ventolin HFA 90 mcg/actua tion aerosol [...] BY MOUTH TWICE DAILY FOR 5 DAYS 06/17 completed Not Available Not Available Not Available fluticaso ne furoate 27.5 mcg/actua tion nasal spray,michael pension 06/17 completed Medicati on ID: [id number] B rand Name: fluticas one furoate Send Method: E-Prescr ibed Sub s Allowed: subs OK Medic ationGen ericName : fluticas one furoate Not Available Not Available Not Available Vitals Date Recorded Body height Body mass index (BMI) Body weight Provider Name and Address Organization Details Last Updated DateTime 06/17/2024 160.02 cm 26.6 kg/m2 29098.86 g Janene Potvin [place] - [facility] 06/17/2024 10:52:10 Date Recorded Body height Body mass index (BMI) Body weight Provider Name and Address Organization Details Last Updated DateTime 01/20/2024 161.29 cm 26.2 kg/m2 10471.86 g Darlene Linares [place] - [facility] 01/20/2024 10:38:07 Social History None recorded. Functional Status None recorded. Mental Status None recorded. Family History Nothing Reported. Medical History No medical history recorded. Gynecological HistoryNo gynecological history recorded. Obstetrics History GPAL:G 0 P 0 0 0 0 Past Encounters Encounter ID Performer Location Encounter Start Date Encounter Closed Date Diagnosis/Indication Diagnosis SNOMED-CT Code Diagnosis ICD10 Code Diagnosis Note [id number] NATALIA STALLWORTH PA-C [facility] [address] [address] 01/20/2024 10:28:03 01/20/2024 10:59:14 Dizziness and giddiness 042193475 R42 Atypical facial pain 713 16910 G50.1 Viral uppe r respiratory tract infection 600456142 J06.9 [id number] NATALIA STALLWORTH PA-C [facility] [address] [place] [address] 06/17/2024 10:41:56 06/17/2024 11:44:31 Hoarse 61341231 R49.0 Health Concerns Section Related Observation LastModified by Organization Detai ls LastModified Time None Recorded Concern Status LastModified by Organization Details LastModified Time None Recorded Advance Directives Directive None Recorded Payers Insurance Date Sequence Insurance Name Policy Number Policy Carmona Covered Member ID Carmona Member ID Guarantor Name 06/17/2024 1 [place]ICARE B[place]: [employer] Raquel Dennis [id number] Raquel Dennis 06/17/2024 2 [facility] (PPO) [id number] Raquel Dennis [id number] Raquel Dennis Notes Date Note Type [...] for vestibular physical therapy. ANASTACIA BRODY MD [address] [place] [address],[address], [address], [facility] 01/21/2024 07:38:30 06/17/2024 text/html 78 year old michale rai presents to the office reporting that for the past couple of months she has dealt with hoarseness. In the morning her voice sounds normal and by mid to later in the day she starts to lose her voice. It becomes more rough in nature. Her boyfriend cannot hear her and she frequently is straining her voice. No recent upper respiratory infection. She is not on any medication for reflux and denies symptoms. She quit smoking over 40 years ago. She does find herself clearing her throat frequently and admits that she does not drink much water. RC GOOD MD [address] [place] [address],[address], [address], [facility] 06/17/2024 17:19:37 OBGyn Episode No OBEpisode recorded.
--- OUTSIDE RECORDS SUMMARY | 2024-08-06 10:24 | XMS_ITS ---
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 Generated for Printi ng/Faxing/eTransmitting on:?08/06/2024 10:24 AM EDT
--- OUTSIDE RECORDS SUMMARY | 2024-08-06 10:24 | XMS_ITS | Patient Health Record ---
Author Organization [facility] Address [address] [place] [address] Care Team Providers Care Temperer Name Role Phone Viral Anderson MD Primary Care Provider Janki Vargas Unavailable [phone] Allergies Allergen (clinical drug ingredient) Drug/Non Drug Allergy documented on EMR Reaction Allergy Type Onset Date Status celecoxib Celecoxib Unknown Drug Allergy Active nitrofurantoin Nitrofurantoin Unknown Drug Allergy Active Diclofenac Unknown Drug Allergy Active clindamycin Clindamycin Unknown Drug Allergy Act lakisha erythromycin Erythromycin Unknown Drug Allergy A ctive Penicillin Unknown Drug Allergy Active Reason For Referral No Information Medications Medication SIG (Take, Route, Fr equency, Duration) Notes Start Date End Date Status Acetaminophen Active Aspirin Active Omeprazole Active Gabapentin Active Cyclobenzaprine HCl Active busPIRone HCl Active Atorvastatin Calcium Active hydroCHLOROthiazide Active Meloxicam Active valACYclovir HCl Act lakisha Fluticasone Propionate Active Valsartan Active Social History Tobacco Use: Social History [...] point) Points 0 Interpretation Negative Vital Signs Blood pressure diastolic 70 mm Hg 07/13/2024 Height 5ft 3in in 07/13/2024 Blood pressure systolic 130 mm Hg 07/13/2024 Weight 150 lbs 07/13/2024 BMI 26.57 kg/m2 07/13/2024 Encounters Encounter Location Date Provider Diagnosis [facility] [address] [place] [address] 07/13/2024 Janki Curry Flat foot [pes planus] (acquired), right foot M21.41 ; Flat foot [pes planus] (acquired), left foot M21.42 and Pain in left foot M79.672 [facility] [address] [place] [address] 06/10/2024 Janki Curry Assessments Encounter Date Diagnosis (ICD Code) Assessment Notes Treatment Notes Treatment Clinical Notes Section Notes 07/13/2024 Flat foot [pes planus] (acquired), left foot (ICD-10 - M21.42) 07/13/2024 Flat foot [pes planus] (acquired), right foot (ICD-10 - M21.41) 07/13/2024 Pain in left foot (ICD-10 - M79.672) Plan Of Treatment No Information Insurance Providers Payer Name Payer Address Payer Phone Subscriber Number Group Number Insured Name Patient Relationship to Insured Coverage Start Date Coverage End Date Medicare National [employer]t [employer] [address] [place] [address] [id number] Raquel Dennis Self - patient is the insured 0 [employer] [address] [place] [address] [id number] Raquel Dennis Self - patient is the insured Medical (General) History Medical History History ICD Code Anxiety osteoarthritis Back,Hip,and Knee pain Cataracts Headaches/Migraines High Blood Pressure Lyme disease Osteoporosis Psychiatric disorder Sciatica sinusitis Mumps Chicken pox Joint implants/screws Mild heart attack Factor Leiden DVT Blood Clots CAD (Cholesterol) Fibromyalgia Right eye double vision Severe hearing loss at left ear Herniated lumbar disc Surgical History Surgery Date(Month/Year) spinal stenosis surgery Gingivectomy 1984 tonsillectomy 1949 discectomy 1989 L & R Tailers Bunion 1997 R rotator cuff 2002 R Carpal tunnel 2007 L Carpal tunnel & CT release 2008 left knee replacement 2013 right knee replacement 2010 cataract surgery, right 2012 lasik 2004 cataract surgery, left 2018 L rotator cuff [address] release 2016
== END 2024-08-06 10:49 | disposition home or self-care (01) ==
PROVIDERS: PCP Internal Medicine; Visit Provider Internal Medicine Rheumatology
DX: M25.511 Pain in right shoulder (principal); G89.29 Other chronic pain; M75.81 Other shoulder lesions, right shoulder; M79.605 Pain in left leg; R74.01 Elevation of levels of liver transaminase levels; Z79.899 Other long term (current) drug therapy; M70.62 Trochanteric bursitis, left hip; M47.816 Spondylosis without myelopathy or radiculopathy, lumbar region
CPT/HCPCS: 99214; G2211

== ENCOUNTER 2024-08-06 10:03 | Outpatient (REF) | payer MEDICARE, SELFPAY ==
--- NOTE | ~2024-08-06 | XR_ITS ---
EXAMINATION: XR SHOULDER 2 OR MORE VIEWS RIGHT HISTORY: M25.511 - Pain in right shoulder COMPARISON: There are no prior studies available for comparison. FINDINGS: Three views of the right shoulder are submitted. Osseous mineralization is normal. There are suture anchors in the humeral head. There is no fracture or dislocation. There is moderate to severe osteoarthritis of the glenohumeral and acromioclavicular joints with joint space narrowing and osteophyte formation. The soft tissues are unremarkable. XR/XR shoulder RT min 2V IMPRESSION: Moderate osteoarthritis as described. Electronically signed by: Napoleon Deleon MD 08/06/2024 01:23 PM EDT
[2024-08-06 18:12] LABS: Alanine Aminotransferase 33 U/L (0-31); Aspartate Amino Transferase 35 U/L (5-31); Estimated Glomerular Filt Rate > 60
== END 2024-08-06 10:04 | disposition home or self-care (01) ==
LOC: HO.HKASLDS 10:03
PROVIDERS: PCP Internal Medicine; Visit Provider Internal Medicine Rheumatology
DX: M25.511 Pain in right shoulder (principal); Z79.60 Long term (current) use of unspecified immunomodulators and immunosuppressants; G89.29 Other chronic pain; M75.81 Other shoulder lesions, right shoulder; M79.605 Pain in left leg; Z79.899 Other long term (current) drug therapy; M70.62 Trochanteric bursitis, left hip; M47.816 Spondylosis without myelopathy or radiculopathy, lumbar region
CPT/HCPCS: 36415; 73030; 82565; 84450; 84460; 99212

== ENCOUNTER → 2024-08-06 11:36 | Outpatient (BNV) | payer MEDICARE, SELFPAY | PROVIDERS: PCP Internal Medicine; Visit Provider Radiology Diagnostic Radiology | DX: M19.011 Primary osteoarthritis, right shoulder (principal) | CPT/HCPCS: 73030 ==

== ENCOUNTER 2024-09-08 14:00 | Outpatient (RCR) | payer MEDICARE, SELFPAY ==
--- NOTE | 2024-08-27 11:42 | MHC.PT.EP ---
[facility] [place] Office [place] Office [place] Office [address] Delaney Srivastava [address] [phone] F: [phone] F: [phone] F: [phone] F: [phone] Physical Therapy Plan of Care Date of Evaluation: 08/27/24 Date of Surgery: n/a Diagnosis: pain in R shoulder Assessment: Patient is a 78 year old female presenting to PT with complaints of pain in her R shoulder. Pt reports onset of pain began May 2024 due to a fall. She presents today with impairments in pain, shoulder ROM, posture, shoulder strength. Pt's current occupation is retired, with baseline physical activities including gardening, ADLs, reaching, lifting. 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 Clinical presentation today is most consistent with signs and sx associated with R shoulder pain and pt will benefit from skilled PT 2 week x 4 weeks to address the following problems and impairments noted upon evaluation: pain, shoulder ROM, posture, shoulder strength. These problems limit the patient with the following functional activities: gardening, ADLs, reaching, lifting. The prescribed treatment plan of care is medically necessary. 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 Pt was educated on HEP, role of PT, prognosis, POC. Frequency and Duration: The patient will be seen 2 x week x 4 weeks Short Term Goals: Pt will demonstrate equal shoulder ROM in 2 weeks. Pt will demonstrate improved R shoulder MMT strength by 1/3 grade in 2 weeks. Ranger Aide Goals: Pt will demonstrate improved SPADI score by 13 points in 4 weeks for improved functional mobility. Pt will demonstrate ability to reach and lift with min to no pain in 4 weeks for return to PLOF. Pt will demonstrate ability to complete ADLs with min to no pain in 4 weeks for return to PLOF. Treatment Plan: Modalities to reduce pain, spasms and effusion. Manual therapy to restore motion and function. Therapeutic exercise to improve strength and flexibility. Neuromuscular re-education for posture and balance. Therapeutic activities to return to functional activities of daily living. Electronically signed by: Nicolette Hallie, PT, DPT, ATC Please sign and return to therapist. Thank you for your referral.
--- NOTE | 2024-10-09 08:12 | MHC.PT.DC ---
[facility] [place] Office [place] Office [place] Office [address] Delaney Srivastava [address] [phone] F: [phone] F: [phone] F: [phone] F: [phone] Physical Therapy Discharge Report Diagnosis: pain in R shoulder Date of Surgery: n/a Date of Evaluation: 08/27/24 Date of Discharge: 10/09/24 Treatments to Date: 2 Cancellations to Date: 0 No Shows to Date: 1 Discharge Status: Patient Elected to Stop Discharge Summary: Pt had been placed on 30 day hold at last visit and has not called to be scheduled therefore, we will d/c as planned. Electronically signed by: Nicolette Sterling, PT, DPT, ATC Please sign and return to therapist. Thank you for your referral.
== END 2024-10-09 08:12 | disposition home or self-care (01) ==
LOC: HO.PTCHIC 14:00
PROVIDERS: PCP Internal Medicine; Visit Provider Internal Medicine Rheumatology
DX: M25.511 Pain in right shoulder (principal); M75.81 Other shoulder lesions, right shoulder
CPT/HCPCS: 97110; 97161

== ENCOUNTER 2024-12-09 12:59 | Outpatient (AMB) | payer MEDICARE, SELFPAY ==
[2024-12-09 13:07] VITALS: BP 110/70; PULSE 74; O2SAT 97; BMI 26.4
--- NOTE | 2024-12-09 13:07 | A.OFFVIS_ITS ---
Vital Signs 12/09/24 13:07 Height 5 ft 3 in Weight 149 lb 4.047 oz BMI 26.4 BP 110/70 Blood Pressure Location Rt brachial Position Sitting Pulse 74 Pulse Source Pulse Oximeter Pulse Oximetry (%) 97 Oxygen Delivery Method Room Air Intake Visit Reasons: 4 months Intake Note: Patient presents today for follow up on OA. Allergies clindamycin Allergy (Mild, Verified 12/09/24 13:08) Swelling erythromycin base Allergy (Mild, Verified 12/09/24 13:08) tachycardia Penicillins Allergy (Mild, Verified 12/09/24 13:08) Hives tramadol (From Ultram) Allergy (Mild, Verified 12/09/24 13:08) makes her nuts nitrofurantoin Allergy (Unknown, Verified 12/09/24 13:08) Unknown diclofenac Adverse Reaction (Unknown, Verified 12/09/24 13:08) Unknown lovonox Allergy (Mild, Uncoded 02/06/24 13:31) Swelling celecoxib Adverse Reaction (Intermediate, Uncoded 02/06/24 13:31) extreme tiredness Medication List - Last Reconciled 12/09/24 by Ace Rosado MD atorvastatin 40 mg PO DAILY buspirone 10 mg PO BID cyclobenzaprine 5 mg PO BEDTIME gabapentin 300 mg PO BID mirtazapine 15 mg PO BEDTIME valacyclovir 1,000 mg PO DAILY valsartan 80 mg PO DAILY HPI HPI 4 months: Details: She has right bursa pain when she touches her bursa. Her main pain is in her lower back that wraps around her waist and extends to her left buttocks region. She had left SI joint cortisone injection that caused numbness in her left leg. She had difficulty walking. She continues to experience numbness in her toes. She takes gabapentin 300 mg b.i.d.. She has occasional alcohol. She stopped meloxicam 3-4 days ago. She continues to take Tylenol. Physical Exam Vital Signs: Last Vital Signs Pulse 74 12/09/24 13:07 BP 110/70 12/09/24 13:07 Pulse Ox 97 12/09/24 13:07 Oxygen Delivery Method Room Air 12/09/24 13:07 BMI result Body Mass Index 26.4 Const Other: General: Comfortable Skin: No lesions seen MSK: Tender to palpate left trochanteric bursa. Limited external rotation of left hip. Tender to palpate left upper paraspinal muscles of lumbar spine and laterally affecting flank Assessment & Plan Assessment & Plan (1) Transaminitis: Comment: Chronic. She has mild transaminitis on recent labs 02/2024 without prior his tory of liver dysfunction or liver disease. Persistent mild elevation of ALT 33 (N<31). NSAIDs can rarely cause transaminitis. Ultrasound of her liver 10/2024 was normal. Code(s): R74.01 - Elevation of levels of liver transaminase levels Category: Medical Plan: Avoid Tylenol, alcohol and discontinue meloxicam Repeat LFTs in 2 weeks (2) Trochanteric bursitis, left hip: Comment: Pain improved with last cortisone injection. Code(s): M70.62 - Trochanteric bursitis, left hip Category: Medical Plan: Monitor clinically She will call office when she needs an appointment for left trochanteric cortisone injection. She can be placed in my urgent slot on Saturday or if there is no appointment available (3) Low back pain: Comment: Due to myofascial strain contributing on background of lumbar spondylosis Code(s): M54.50 - Low back pain, unspecified Category: Medical Qualifiers: Chronicity: chronic Plan: Start taking cyclobenzaprine 5 mg q.h.s. I recommend discussing with PCP or pain management about increasing gabapentin to better manage chronic back pain Continue to apply heat or ice to back Avoid Tylenol, and discontinue meloxicam due to transaminitis Try lidocaine patch She will be following up with pain management next week Orders: Orders Alanine Aminotransferase 2 Weeks R74.01 - Elevation of levels of liver transaminase levels Aspartate Amino Transferase 2 Weeks R74.01 - Elevation of levels of liver transaminase levels Coding Level of Care Code Est Pt Level 4 (56809) Complex EM visit Add On G2211 Diagnoses Transaminitis R74.01 Trochanteric bursitis, left hip M70.62 Low back pain M54.50 Chronicity: chronic
--- NOTE | 2024-12-09 13:38 | HO.SPINEOV ---
Vital Signs 12/09/24 13:07 Height 5 ft 3 in Weight 149 lb 4.047 oz BMI 26.4 BP 110/70 Blood Pressure Location Rt brachial Position Sitting Pulse 74 Pulse Source Pulse Oximeter Pulse Oximetry (%) 97 Oxygen Delivery Method Room Air Intake Visit Reasons: 4 months Allergies clindamycin Allergy (Mild, Verified 12/09/24 13:08) Swelling erythromycin base Allergy (Mild, Verified 12/09/24 13:08) tachycardia Penicillins Allergy (Mild, Verified 12/09/24 13:08) Hives tramadol (From Ultram) Allergy (Mild, Verified 12/09/24 13:08) makes her nuts nitrofurantoin Allergy (Unknown, Verified 12/09/24 13:08) Unknown diclofenac Adverse Reaction (Unknown, Verified 12/09/24 13:08) Unknown lovonox Allergy (Mild, Uncoded 02/06/24 13:31) Swelling celecoxib Adverse Reaction (Intermediate, Uncoded 02/06/24 13:31) extreme tiredness Medication List - Last Reconciled 12/09/24 by Ace Rosado MD atorvastatin 40 mg PO DAILY buspirone 10 mg PO BID cyclobenzaprine 5 mg PO BEDTIME gabapentin 300 mg PO BID mirtazapine 15 mg PO BEDTIME valacyclovir 1,000 mg PO DAILY valsartan 80 mg PO DAILY HPI HPI 4 months: Details: Duplicate note. Physical Exam Vital Signs: Last Vital Signs Pulse 74 12/09/24 13:07 BP 110/70 12/09/24 13:07 Pulse Ox 97 12/09/24 13:07 Oxygen Delivery Method Room Air 12/09/24 13:07 BMI result Body Mass Index 26.4 Assessment & Plan Assessment & Plan (1) Transaminitis: Comment: Chronic. She has mild transaminitis on recent labs 02/2024 without prior history of liver dysfunction or liver disease. Persistent mild elevation of ALT 33 (N<31). NSAIDs can rarely cause transaminitis. Ultrasound of her liver 10/2024 was normal. Code(s): R74.01 - Elevation of levels of liver transaminase levels Category: Medical Plan: Duplicate note Orders: Orders Alanine Aminotransferase 2 Weeks R74.01 - Elevation of levels of liver transaminase levels Aspartate Amino Transferase 2 Weeks R74.01 - Elevation of levels of liver transaminase levels Coding Level of Care Code Left Without Being Seen Diagnoses Transaminitis R74.01 Comment Duplicate note. Patient was seen December 09-see other note.
--- OUTSIDE RECORDS SUMMARY | 2024-12-09 15:26 | XMS_ITS | Data Portability ---
Author Organization [place] [facility], Allergy Address [address] [address] Care Team Providers Care Pheresis Specialist Name Role Phone TRESA PALMA Primary Care Provider Assessment Encounter Date Assessment Date Assessment LastModified by Organization Details LastModified Time 01/20/2024 01/20/2024 78 year old michael rai with right maxillary sinus pressure for about [...] seen and examined with Toyin More PA-C. [email or web address] Not available 01/20/2024 14:14:42 06/17/2024 06/17/2024 78 year old michael rai with hoarseness that progresses over the course of the day. Fiberoptic laryngoscopy was unremarkable. I have recommended a six week trial of Omeprazole to address silent reflux. Discussed good voice hygiene including adequate hydration, avoidance of straining and clearing throat. I have also issued her a prescription for speech therapy with Vanessa Guillen. Follow up in 4 months. [email or web address] Not available 06/17/2024 15:08:37 10/21/2024 10/21/2024 79-year-old michael rai with allergic rhinitis presents for reevaluation of hoarseness. She reports symptoms resolved with diet modification, omeprazole, and voice therapy. Denies pharyngitis, heartburn, or dysphagia. Physical examination is benign today. Recommend tapering off omeprazole, as we do not recommend this long-term. If GERD symptoms return, recommend referral to gastroenterology for fpc management. She will continue supportive measures for allergic rhinitis with intranasal fluticasone daily and oral antihistamine as needed. Patient will return for hearing evaluation in 6 months, sooner with concerns. [email or web address] Not available 10/21/2024 12:31:41 Plan of Treatment Reminders Order Date Submit Date Provider Last Modified By Organization Details Last Modified Time Details Appointments Hearing Test 2025 01:00P M Hearing Test Not available Not available Not available Establi shed 15 2025 01:30P M MARIA ESTHER URIBE PA-C Not available Not available Not available Lab None recorde d. Referral speech therapy referra l 2024 025 [email or web address] Vanessa [place], [address] [place] [address], [place], [address], 08/21/2024 08:39:19 vestibu lar therapy referra l - Referra l for vestibu lar therapy . Patient request glen Gomez . Thank you. 2023 024 [facility], [address] [facility], [place], [address], 02/06/2024 08:57:23 Procedures None recorde d. Surgeries None recorde d. Imaging None recorde d. Medication Orders omepraz ole 20 mg capsule ,delaye d release 2024 025 ALISO VIEJO [id number], [address], [place], [id number], 06/17/2024 11:30:30 Patient TargetsNo targets recorded. Patient InstructionsNo instructions recorded. Reason for Referral Vestibular Therapy Referral for Dizziness and giddiness Referral for vestibular therapy. Patient requests Nini Gomez. Thank you. 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; Note: Date Diagnosed: 07/07/2015 2:16 PM (H90.42) Not Available [facility] 4 02:18:16 Dizziness and giddiness 455112166 Active 2020 Dizziness and giddiness; Note: Date Diagnosed: 01/12/2021 2:02 PM (R42) Not Available [facility] 4 02:19:03 Acute pansinusi tis 6384104 Active 2020 Acute recurrent pansinusit is; Note: Date Diagnosed: 01/12/2021 2:40 PM (J01.41) Not Available [facility] 4 02:18:20 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 Natalia adamson [place] - [facility] 4 14:13:59 Viral upper respirato ry tract infection 543830757 Active 2023 Natalia adamson [place] - [facility] 4 14:14:03 Hoarse 23997900 Active 2024 Natalia adamson [place] - [facility] 5 11:27:33 Posterior rhinorrhe a 09218616 Active 2024 MARIA ESTHER URIBE PA-C [address] [facility],[place] [address], [place], [address] , [place] - [facility] 5 12:29:45 Gastroeso phageal reflux disease without esophagit is 245101904 Active 2024 MARIA ESTHER URIBE PA-C [address] [facility] [address], [place], [address] , [place] - [facility] 5 12:30:09 Allergic rhinitis 78142070 Active 2024 MARIA ESTHER URIBE PA-C [address] [facility] [address], [facility] [place], [address] , [facility] 5 12:32:14 Problem Notes None recorded. Procedures Surgical History Date Name Laterality Status Provider Name and Address Organization Details Recorded Time 06/17/2024 FOL_DP completed Natalia Stallworth [facility] 06/17/2024 15:06:11 01/20/2024 NasalEndos copy_DP completed Natalia Stallworth [facility] 01/20/2024 12:59:35 Imaging Results None recorded. Procedure Notes None recorded. Medical Equipment None Reported. Allergies Allergen ID Allergen Name Allergen Category Reaction Reaction Severity Criticality Documentation Date Start Date Code Code System Note Provider Name and Address Organization Details Recorded Time 81483 clindamyc in hydrochlo ride medicatio n other Not available Not available 07/30/2023 83000 RxNorm React ion: unkno wn, unspe cifie d;; Not Available [facility] 4 00:50:06 33460 Product containin g penicilli n (product) medicatio n other Not available Not available 07/30/2023 88508 8001 SNOMED React ion: unkno wn, unspe cifie d;; Not Available [facility] 4 00:50:42 34702 erythromy brittany medicatio n other Not available Not available 07/30/2023 4053 RxNorm React ion: unkno wn, unspe cifie d;; Not Available [facility] 4 00:50:52 Medications Name Sig Start Date Stop Date Status Note LastModified by Organization Details LastModified Time celecoxib 200 mg capsule TAKE 1 CAPSULE BY MOUTH TWICE DAILY WITH FOOD 06/17 completed Not Available Not Available Not Available cyclobenz aprine 10 mg tablet 01/12 completed Medicati on ID: [id number] B rand Name: kt santana Send Method: [...] completed Not Available Not Available Not Available valacyclo vir 1 gram tablet TAKE 1 TABLET BY MOUTH DAILY active Not Available Not Available No t Available Ativan 1 mg tablet Take 1 tablet by mouth single dose as needed 01/12 completed Medicati on ID: [id number] D uration Value: 2 Brand Name: Ativan [...] mg tablet 01/12 completed Medicati on ID: [id number] B rand Name: meloxica m Send Method: E-Prescr ibed Sub s Allowed: subs OK Medic ationGen ericName : meloxica m Not Available Not Available Not Available benzonata te 100 mg capsule TAKE 1 CAPSULE BY MOUTH THREE TIMES DAILY FOR 7 DAYS NEEDED FOR COUGH 06/17 completed Not Available Not Available Not Available simvastat in 20 mg tablet 01/12 completed Medicati on ID: [id number] B rand Name: simvasta tin Send Method: [...] mg tablet 01/12 completed Medicati on ID: [id number] D uration Value: 90 Brand Name: lisinopr [...] TAKE 1 CAPSULE BY MOUTH EVERY DAY 2024 active Not Available Not Available Not Avai lable hydrochlo rothiazid e 25 mg tablet TAKE [...] mg tablet 01/12 completed Medicati on ID: [id number] B rand Name: zolpidem Send Method: E-Prescr [...] unit/gram eye ointment APPLY 1 THIN LAYER IN RIGHT EYE THREE TIMES DAILY FOR 5 DAYS 10/18 completed Not Available Not Available Not Available [...] spray,michael pension 06/17 completed Medicati on ID: [id number] B rand Name: fluticas one furoate Send Method: E-Prescr ibed Sub s Allowed: subs OK Medic ationGen ericName : fluticas one furoate Not Available Not Available Not Available Vitals Date Recorded Body height Body mass index (BMI) Body weight Provider Name and Address Organization Details Last Updated DateTime 06/17/2024 160.02 cm 26.6 kg/m2 85090.86 g Janene Tomas [place] [facility] 06/17/2024 10:52:10 Date Recorded Body height Body mass index (BMI) Body weight Provider Name and Address Organization Details Last Updated DateTime 10/21/2024 160.02 cm 25.7 kg/m2 10474.89 g Janene Tomas [place] [facility] 10/21/2024 11:27:59 Date Recorded Body height Body mass index (BMI) Body weight Provider Name and Address Organization Details Last Updated DateTime 01/20/2024 161.29 cm 26.2 kg/m2 33069.86 g Darlene Linares [place] [facility] 01/20/2024 10:38:07 Social History None recorded. Functional Status None recorded. Mental Status None recorded. Family History Nothing Reported. Medical History No medical history recorded. Gynecological HistoryNo gynecological history recorded. Obstetrics History GPAL:G 0 P 0 0 0 0 Past Encounters Encounter ID Performer Location Encounter Start Date Encounter Closed Date Diagnosis/Indication Diagnosis SNOMED-CT Code Diagnosis ICD10 Code Diagnosis IMO Codes Diagnosis Note [id number] NATALIA STALLWORTH PA-C [facility] on [address] [place] [address] 01/20/2024 10:28:03 01/20/2024 10:59:14 Dizziness and giddiness 339663659 R42 Atypical facial pain 713 78897 G50.1 Viral uppe r respiratory tract infection 275038663 J06.9 [id number] NATALIA STALLWORTH PA-C [facility] [address] [place] [address] 06/17/2024 10:41:56 06/17/2024 11:44:31 Hoarse 80474847 R49.0 [id number] MARIA ESTHER URIBE PA-C [facility] [address] [place] [address] 10/21/2024 11:15:36 10/21/2024 11:50:33 Posterior rhinorrhea 27624867 J34.89 828688 Hoarse 08118410 R49.0 Gastroesop hageal reflux disease without esophagitis 879217673 K21.9 741900 Allergic rhinitis 184045 04 J30.9 5734367513 Health Concerns Section Related Observation LastModified by Organization Detai ls LastModified Time None Recorded Concern Status LastModified by Organization Details LastModified Time None Recorded Advance Directives Directive None Recorded Payers Insurance Date Sequence Insurance Name Policy Number Policy Carmona Covered Member ID Carmona Member ID Guarantor Name 10/21/2024 1 [place] [employer] Raquel A Sonny [id number] Raquel A Sonny 10/21/2024 2 [place] [id number] Raquel A Sonny [id number] Raquel A Sonny 10/21/2024 2 [place] [id number] Raquel A Sonny [id number] Raquel A Sonny Notes Date Note Type Note Provider Name and Address Organization Details Recorded Time 01/20/2024 text/html ROS as noted in the HPI 78 year old female presents to the office reporting sinus pressure [...] for vestibular physical therapy. ANASTACIA BRODY MD [address] [facility],[address], [address], [facility] 01/21/2024 07:38:30 06/17/2024 text/html ROS as noted in the [facility] 78 year old female presents to the office reporting that for [...] not drink much water. RC GOOD MD [address] [facility],[address], [address], [facility] 06/17/2024 17:19:37 10/21/2024 text/html ROS as noted in the [facility] 79-year-old female presents for reevaluation of hoarseness. She reports significant improvement with p.o. omeprazole and voice therapy. She trialed a GERD diet, which was difficult due to her current vegetarian diet. Denies throat pain, heartburn, difficulty swallowing, or new concerns. She manages her seasonal allergies with intranasal Flonase and oral antihistamine as needed. RC GOOD MD [address] [facility],[address], [address], [facility] 10/21/2024 12:49:32 OBGyn Episode No OBEpisode recorded.
--- OUTSIDE RECORDS SUMMARY | 2024-12-09 15:26 | XMS_ITS | Patient Health Record ---
Author Organization [facility] Address [address] [facility] [place] [address] Care Team Providers Care Kit Planner Name Role Phone Viral Anderson MD Primary Care Provider Janki Vargas Unavailable [phone] Allergies Allergen (clinical drug ingredient) Drug/Non Drug [...] 07/13/2024 Encounters Encounter Location Date Provider Diagnosis [facility] [address] [place] [address] 07/13/2024 Janki Curry Flat foot [pes planus] (acquired), right foot M21.41 ; Flat foot [pes planus] (acquired), left foot M21.42 and Pain in left foot M79.672 [facility] [address] [place] [address] 06/10/2024 Janki Curry Assessments Encounter Date Diagnosis [...] [employer] [address] [place] [address] [id number] Raquel Dennis Self - patient is the insured 0 [employer] [address] [place] [address] [id number] Raquel Dennis Self - patient is the [...]
== END 2024-12-09 13:29 | disposition home or self-care (01) ==
LOC: HO.RHES 13:00
PROVIDERS: PCP Internal Medicine; Visit Provider Internal Medicine Rheumatology
DX: R74.01 Elevation of levels of liver transaminase levels (principal); M70.62 Trochanteric bursitis, left hip; M54.50 Low back pain, unspecified
CPT/HCPCS: 99214; G2211

== ENCOUNTER → 2024-12-09 12:59 | Outpatient (BNVA) | payer MEDICARE, SELFPAY | PROVIDERS: PCP Internal Medicine; Visit Provider Internal Medicine Rheumatology | DX: R74.01 Elevation of levels of liver transaminase levels (principal); M70.62 Trochanteric bursitis, left hip; M54.50 Low back pain, unspecified; F10.10 Alcohol abuse, uncomplicated | CPT/HCPCS: 99212 ==

== ENCOUNTER 2024-12-23 09:41 | Outpatient (REF) | payer MEDICARE, SELFPAY ==
[2024-12-23 13:50] LABS: Alanine Aminotransferase 28 U/L (0-31); Aspartate Amino Transferase 32 U/L (5-31)
== END 2024-12-23 09:42 | disposition home or self-care (01) ==
LOC: HO.HKASLDS 09:41
PROVIDERS: PCP Internal Medicine; Visit Provider Internal Medicine Rheumatology
DX: R74.01 Elevation of levels of liver transaminase levels (principal)
CPT/HCPCS: 36415; 84450; 84460